=== PATIENT | male | born 1990 | race Caucasian/White ===

== ENCOUNTER 2025-04-17 17:45 | Emergency (ER) | payer BC, SELFPAY ==
[2025-04-17 17:52] VITALS: BP 107/58
[2025-04-17 19:27] VITALS: BMI 26.4
--- NOTE | 2025-04-17 20:29 | ED.MUSCINJ ---
HPI-Injury
General
Chief Complaint: Extremity Pain (non-traumatic)
Source: patient
Exam Limitations: none
Time Seen by Provider: 04/17/25 19:50
History of Present Illness-Injury
Initial Injury comments:
35-year-old male presents with atraumatic onset of left elbow redness swelling and pain. He slept in his basement overnight and thought maybe he got bit by a spider. No fevers. No known injury. No other complaints at this time
Phy Exam
Physical Exam
Physical Exam:
General: Well-appearing male no acute respiratory distress
HEENT: Normal cephalic atraumatic
Musculoskeletal exam: Left elbow erythematous and tender over the olecranon process no significant fluctuance or collection of fluid. He has full range of motion of the left elbow no significant abrasion or laceration over this area
Vascular: 2+ radial pulse left wrist
Neurologic: Good sensation left hand
MDM/Problems Addressed
Differential Diagnosis Includes:
Left elbow erythematous. Consider olecranon bursitis question inflammatory versus infectious. Will treat with anti-inflammatories and cover with antibiotics in the event that this is infectious.
*Pulse Oximetry
SaO2: 98
Oxygen Mode of Delivery: Room air
Patient hypoxic: no
*Critical Care Note
Total Time (30-74mins, 75-104mins- exclusive of procedures): Not Applicable
ED Attending Note
-
Portions of this chart may have been created with voice recognition software.� Occasional wrong word or��sound alike� substitutions may have occurred due to the inherent limitations of voice recognition software.
Discharge Plan
Departure
Patient Disposition: Home (Routine Discharge)
Date of Disposition: 04/17/25
Time of Disposition: 20:31
Patient with high blood pressure during this ER visit?: No
Discharge Problem:
Bursitis, olecranon
Prescriptions:
New
prednisone 20 mg tablet
40 mg PO DAILY 5 Days Qty: 10 0RF
doxycycline hyclate 100 mg capsule
100 mg PO BID Qty: 14 0RF
Referrals:
NONE,* [Family Provider, Internal Medicine]
Activity Restrictions/Additional Instructions:
Use prednisone as directed and take antibiotics if not improving. Return here if worse otherwise follow-up with your doctor
Interventions
Interventions:
*Risk Screen - Suicide Last Done: 04/17/25 17:53
*General Assessment Last Done: 04/17/25 17:53
*Neglect/Abuse Screening Last Done: 04/17/25 17:53
*ED- Fall Risk Assessment Last Done: 04/17/25 19:27
*ED COVID-19 Vaccine History Last Done: 04/17/25 19:27
*ED Influenza Vaccine History Last Done: 04/17/25 19:27
ED-Skin Assessment Last Done: 04/17/25 19:27
ED-Peripheral Vascular Assessment Last Done: 04/17/25 19:30
ED-Musculoskeletal Assessment Last Done: 04/17/25 19:27
Discharge Date and Time
Print Language: NIUEAN
[2025-04-17] MEDS: DELTASONE 40 MG PO (20:39)
== END 2025-04-17 20:49 | disposition home or self-care (01) ==
LOC: EMR 17:45
PROVIDERS: EMERGENCY PHYSICIAN Emergency Medicine
DX: M70.20 Olecranon bursitis, unspecified elbow (principal)
CPT/HCPCS: 99282